=== PATIENT | male | born 1975 | race Caucasian/White ===

== ENCOUNTER 2021-03-29 07:24 | Emergency (ER) | payer OTHER ==
[~2021-03-29 07:24] MED LIST: AUGMENTIN 875-1 EACH PO; NORCO 5-325 TA1 EACH PO
== END 2021-03-29 08:20 | disposition home or self-care (01) ==
LOC: ER1 07:24
DX: M25.512 Pain in left shoulder (principal)
CPT/HCPCS: 99283